=== PATIENT | female | born 1975 | race Caucasian/White ===

== ENCOUNTER 2021-06-10 10:46 | Emergency (ER) | payer MEDICAID ==
[~2021-06-10] VITALS: Wt 55.8 kg
[~2021-06-10 10:46] MED LIST: ALPRAZOLAM0.5 M3 PO; ALPRAZOLAM2 MG PO; AMOXICILLIN500 MG PO; ARIPIPRAZOLE2 MG PO; ATARAX,VISTARIL10 MG PO; ATARAX,VISTARIL50 MG PO; BACTRIM DS 8001 TA1 PO; CELEXA20 MG PO; CIPROFLOXACIN500 MG PO; CLONAZEPAM1 MG PO; DICYCLOMINE HCL20 MG PO; DOXEPIN50 MG PO; DULOXETINE HCL30 MG PO; ESCITALOPRAM OX20 MG PO; FIORICET 325 MG1 TAB PO; FLAGYL500 MG PO; METHADONE5 MG PO; MOTRIN800 MG PO; Meclizine25 MG PO; Methadone Hydro10 MG PO; Motrin,Rufen800 MG PO; NEURONTIN300 MG PO; NORCO 5-325 TA1 EACH PO; PHENERGAN25 M3 PO; ROBITUSSIN DM 105 ML PO; ROPINIROLE HYD0.5 MG PO; SEROQUEL300 MG PO; TRAMADOL HCL50 MG PO; TRIMOX500 MG PO; TRINTELLIX10 MG PO; ULTRAM50 MG PO; VALIUM10 MG PO; VICODIN 5/500 505 MG PO; VITAMIN D32000 UNI1 PO; WELLBUTRIN75 MG PO; XANAX1 MG PO; XANAX2 M1 PO; XANAX2 MG PO; ZITHROMAX Z PA250 MG PO; ZOFRAN 4 MG ED2 TAB PO; ZOFRAN4 MG PO; ZYPREXA10 M1 PO
[2021-06-10 11:50] LABS: HEMATOCRIT 41.8 % (37.0-47.0); MEAN CORPUSCULAR HGB 30.7 pg (27.0-31.0); MEAN CORPUSCULAR HGB CONC 32.3 g/dl (33.0-37.0); MEAN PLATELET VOLUME 11.2 fl (9.6-12.3); PLATELET COUNT AUTOMATED 142 10*3/uL (130-400); RED CELL DISTRI WIDTH 12.2 % (0-14.5); WHITE BLOOD COUNT 13.8 10*3/uL (4.8-10.8)
[2021-06-10 12:04] LABS: ALBUMIN 3.2 gm/dl (3.1-4.5); CREATININE 2.13 mg/dL (0.55-1.02); POTASSIUM 4.3 mmol/L (3.5-5.1)
[2021-06-10 12:05] LABS: TOTAL CELLS COUNTED 100 #CELLS
[2021-06-10 12:06] LABS: PLATELET SUFFICIENCY NORMAL (NORMAL)
[2021-06-10] MEDS ORDERED: AMOXICILLIN500 M3 PO (14:50)
== END 2021-06-10 15:00 | disposition home or self-care (01) ==
LOC: ED 10:46
PROVIDERS: Nurse Practitioner Family
DX: H66.93 Otitis media, unspecified, bilateral (principal); Z88.8 Allergy status to other drugs, medicaments and biological substances; Z79.899 Other long term (current) drug therapy; Z98.51 Tubal ligation status; Z87.891 Personal history of nicotine dependence

== ENCOUNTER 2025-04-30 09:54 | Emergency (ER) | payer OTHER ==
[~2025-04-30] VITALS: Wt 47.6 kg
[~2025-04-30 09:54] MED LIST changes: +AMOXICILLIN500 M3 PO
[2025-04-30] MEDS ORDERED: Albuterol Sulf/Ipratropium 3 ML VIAL NEB ONE (10:40)
[2025-04-30 10:51] LABS: BASO # 0.1 10*3/uL (0.0-0.1); BASO % 0.7 % (0.0-1.0); EOS # 0.4 10*3/uL (0.0-0.4); EOS % 6.0 % (1.0-4.0); MEAN CELL VOLUME 92.4 fl (81.0-99.0); MEAN CORPUSCULAR HGB 31.8 pg (27.0-31.0); MEAN PLATELET VOLUME 10.5 fl (9.6-12.3); MONO # 0.3 10*3/uL (0.1-1.0); MONO % 4.5 % (3.0-9.0); NEUT # 4.7 10*3/uL (2.3-7.9); NEUT % 70.2 % (47.0-73.0); NUCLEATED RED BLOOD CELL 0.0 % (0.0-0.0); NUCLEATED RED BLOOD CELL 0.0 10*3/uL (0.0-0.0); PLATELET COUNT AUTOMATED 204 10*3/uL (130-400); RED CELL DISTRI WIDTH 12.0 % (0-14.5)
[2025-04-30 11:08] LABS: BUN 7 mg/dl (9-23)
[2025-04-30] MEDS ORDERED: METHOCARBAMOL500 M1 PO (12:43)
[2025-04-30] MEDS ORDERED: VENT7GM INH (12:43)
[2025-04-30] MEDS ORDERED: PREDNISONE50 MG PO (12:43)
[2025-04-30] MEDS ORDERED: GUAIFENESIN AC473 M1 PO (12:43)
== END 2025-04-30 12:46 | disposition home or self-care (01) ==
LOC: ED 09:54
PROVIDERS: Emergency Medicine
DX: S29.012A Strain of muscle and tendon of back wall of thorax, initial encounter (principal); J40 Bronchitis, not specified as acute or chronic; F41.9 Anxiety disorder, unspecified; F31.9 Bipolar disorder, unspecified; Z72.0 Tobacco use; Z88.8 Allergy status to other drugs, medicaments and biological substances; Z98.890 Other specified postprocedural states; X58.XXXA Exposure to other specified factors, initial encounter; Y93.89 Activity, other specified; Y92.89 Other specified places as the place of occurrence of the external cause; Y99.8 Other external cause status

== ENCOUNTER 2025-05-05 23:05 | Emergency (ER) | payer OTHER ==
[~2025-05-05] VITALS: Ht 154.9 cm; Wt 47.6 kg
[~2025-05-05 23:05] MED LIST changes: +GUAIFENESIN AC473 M1 PO; +METHOCARBAMOL500 M1 PO; +PREDNISONE50 MG PO; +VENT7GM INH
[2025-05-05 23:30] VITALS: BP 179/101
[2025-05-05] MEDS ORDERED: Albuterol Sulf/Ipratropium 3 ML VIAL NEB ONE (23:35)
[2025-05-06] LABS: BASO # 0.1 10*3/uL (0.0-0.1); BASO % 0.6 % (0.0-1.0); EOS # 1.2 10*3/uL (0.0-0.4); EOS % 11.8 % (1.0-4.0); MEAN CELL VOLUME 95.3 fl (81.0-99.0); MEAN CORPUSCULAR HGB 31.8 pg (27.0-31.0); MEAN PLATELET VOLUME 10.8 fl (9.6-12.3); MONO # 0.4 10*3/uL (0.1-1.0); MONO % 3.9 % (3.0-9.0); NEUT # 6.8 10*3/uL (2.3-7.9); NEUT % 68.4 % (47.0-73.0); NUCLEATED RED BLOOD CELL 0.0 % (0.0-0.0); NUCLEATED RED BLOOD CELL 0.0 10*3/uL (0.0-0.0); PLATELET COUNT AUTOMATED 194 10*3/uL (130-400); RED CELL DISTRI WIDTH 12.4 % (0-14.5)
[2025-05-06 00:21] LABS: BUN 13 mg/dl (9-23)
[2025-05-06] MEDS ORDERED: AZITHROMYCIN 250 ML IV ONE (00:45)
[2025-05-06] MEDS ORDERED: SODIUM CHLORIDE 0.9% 1,000 ML IV SCH (01:35)
[2025-05-06 02:54] VITALS: BP 122/79
[2025-05-06] MEDS ORDERED: ACETAMINOPHEN 325 MG TAB PO PRN (04:15)
[2025-05-06] MEDS ORDERED: Ondansetron Hydrochloride 4 MG/2 ML VIAL IV PRN (04:15)
[2025-05-06] MEDS ORDERED: BISACODYL 5 MG TAB PO PRN (04:15)
[2025-05-06] MEDS ORDERED: TEMAZEPAM 15 MG CAP PO PRN (04:15)
[2025-05-06] MEDS ORDERED: CLONAZEPAM0.5 M2 PO (04:22)
[2025-05-06] MEDS ORDERED: Albuterol Sulf/Ipratropium 3 ML VIAL NEB SCH (04:25)
[2025-05-06] MEDS ORDERED: ZITHROMAX250 MG PO (09:10)
[2025-05-06] MEDS ORDERED: Ipratropium Brom3 ML INH (09:10)
[2025-05-06] MEDS ORDERED: AZITHROMYCIN 250 ML IV SCH (22:00)
== END 2025-05-06 09:40 | disposition home or self-care (01) ==
LOC: ED 23:05 → EDHOLD 05-06 03:25 → ED 05-06 03:25
PROVIDERS: Internal Medicine
DX: A41.9 Sepsis, unspecified organism (principal); J44.1 Chronic obstructive pulmonary disease with (acute) exacerbation; J98.4 Other disorders of lung; F41.9 Anxiety disorder, unspecified; F31.9 Bipolar disorder, unspecified; F17.210 Nicotine dependence, cigarettes, uncomplicated; Z88.6 Allergy status to analgesic agent; Z88.8 Allergy status to other drugs, medicaments and biological substances

== ENCOUNTER 2025-05-18 12:02 | Emergency (ER) | payer OTHER ==
[~2025-05-18] VITALS: Ht 154.9 cm; Wt 47.6 kg
[~2025-05-18 12:02] MED LIST changes: +CLONAZEPAM0.5 M2 PO; +Ipratropium Brom3 ML INH; +ZITHROMAX250 MG PO
[2025-05-18] MEDS ORDERED: Albuterol Sulf/Ipratropium 3 ML VIAL NEB ONE (12:45)
[2025-05-18 13:07] LABS: BASO # 0.0 10*3/uL (0.0-0.1); BASO % 0.5 % (0.0-1.0); EOS # 1.6 10*3/uL (0.0-0.4); EOS % 19.3 % (1.0-4.0); MEAN CELL VOLUME 93.0 fl (81.0-99.0); MEAN CORPUSCULAR HGB 31.7 pg (27.0-31.0); MEAN PLATELET VOLUME 10.9 fl (9.6-12.3); MONO # 0.4 10*3/uL (0.1-1.0); MONO % 4.8 % (3.0-9.0); NEUT # 4.9 10*3/uL (2.3-7.9); NEUT % 59.6 % (47.0-73.0); NUCLEATED RED BLOOD CELL 0.0 % (0.0-0.0); NUCLEATED RED BLOOD CELL 0.0 10*3/uL (0.0-0.0); PLATELET COUNT AUTOMATED 166 10*3/uL (130-400); RED CELL DISTRI WIDTH 12.5 % (0-14.5)
[2025-05-18 13:25] LABS: BUN 8 mg/dl (9-23)
[2025-05-18] MEDS ORDERED: AMOX-CLAV 875-1 EACH PO (14:15)
[2025-05-18] MEDS ORDERED: PREDNISONE20 M1 PO (14:15)
[2025-05-18] MEDS ORDERED: Amoxicillin/Clavulanate Pota 875 MG TAB PO ONE (14:20)
[2025-05-18] MEDS ORDERED: BENZONATATE100 M1 PO (14:22)
== END 2025-05-18 14:29 | disposition home or self-care (01) ==
LOC: ED 12:02
PROVIDERS: Nurse Practitioner Family
DX: J44.1 Chronic obstructive pulmonary disease with (acute) exacerbation (principal); F41.9 Anxiety disorder, unspecified; F31.9 Bipolar disorder, unspecified; F17.290 Nicotine dependence, other tobacco product, uncomplicated; Z88.6 Allergy status to analgesic agent; Z88.8 Allergy status to other drugs, medicaments and biological substances